=== PATIENT | female | born 1960 | race Caucasian/White ===

== ENCOUNTER 2017-04-05 14:30 | Outpatient (CLI) | END 2017-04-05 14:31 | disposition home or self-care (01) | LOC: LAB 14:30 | PROVIDERS: ATTEND Preventive Medicine Obesity Medicine | DX: Z11.59 Encounter for screening for other viral diseases (principal); F64.0 Transsexualism | CPT/HCPCS: 36415; 80053; 80061; 82670; 84403; 84443; 85025 ==

== ENCOUNTER 2017-04-29 11:12 | Outpatient (CLI) | END 2017-04-29 11:13 | disposition home or self-care (01) | LOC: LAB 11:12 | PROVIDERS: ATTEND Preventive Medicine Obesity Medicine | DX: F64.9 Gender identity disorder, unspecified (principal) | CPT/HCPCS: 36415; 84403 ==

== ENCOUNTER 2018-05-25 07:19 | Outpatient (CLI) ==
--- NOTE | 2018-05-25 09:08 | DI ---
EXAM: LEFT KNEE. HISTORY: Knee pain FINDINGS: Left knee two-view. Bone density appears normal. There is mild tricompartment osteoarthr itis. Chondrocalcinosis is noted. There is no joint effusion or fracture. IMPRESSION: 1. Chondrocalcinosis and osteoarthritis.
--- NOTE | 2018-05-25 09:14 | DI ---
EXAM: Two views of the right knee. History: Right knee pain. Findings: No acute fracture or dislocation. Mild tricompartmental joint space narrowing with small osteophytes. Benign anterior soft tissue calcifications. Impression: 1. No acute osseous abnormality. 2. Mild tricompartmental osteoarthritis
--- NOTE | 2018-05-25 09:18 | DI ---
EXAM: Five views of the lumbar spine. History: Lower back pain. Findings: No acute fracture. 5 mm anterolisthesis of L4 on L5. Severe disc space narrowing at L4-L 5, L5, S1 and L2-L3 with endplate sclerosis, osteophyte formation and vacuum disc phenomenon. 4 mm r etrolisthesis of L1 on L2. Moderate to severe disc space narrowing at L1-L2. Severe facet hypertrop hy within the lower lumbar spine. Impression: 1. No acute osseous abnormality. 2. Severe degenerative changes of the lumbar spine
== END 2018-05-25 07:20 | disposition home or self-care (01) ==
LOC: LAB 07:19 → EDSEX 07:19 → LAB 07:20
PROVIDERS: ATTEND Preventive Medicine Obesity Medicine
DX: E87.5 Hyperkalemia (principal); F64.9 Gender identity disorder, unspecified; M25.561 Pain in right knee; M25.562 Pain in left knee; M54.5 Low back pain
CPT/HCPCS: 36415; 80061; 82670; 84132; 84403; 86038; 86200; 86430

== ENCOUNTER 2018-06-02 13:23 | Outpatient (CLI) | END 2018-06-02 13:24 | disposition home or self-care (01) | LOC: LAB 13:23 | PROVIDERS: ATTEND Preventive Medicine Obesity Medicine | DX: E87.5 Hyperkalemia (principal); F64.9 Gender identity disorder, unspecified; Z79.899 Other long term (current) drug therapy | CPT/HCPCS: 36415; 80061; 82670; 84132; 84403 ==